=== PATIENT | female | born 1970 | race Caucasian/White ===

== ENCOUNTER → 2018-05-22 | Outpatient (CLI) | payer OTHER ==
[2018-05-22 19:33] LABS: Percent Saturation 13.3 % (15.0-50.0)
== END | disposition home or self-care (01) ==
LOC: LAB EV 17:15 → LAB SHORT 17:15
PROVIDERS: Physician Assistant Medical
DX: R79.89 Other specified abnormal findings of blood chemistry (principal)
CPT/HCPCS: 82728; 83540; 83550

== ENCOUNTER 2024-06-19 11:39 | Emergency (ER) | payer OTHER ==
[~2024-06-19] VITALS: Ht 165.1 cm; Wt 90.7 kg
[2024-06-19 11:49] VITALS: BP 177/99
[2024-06-19] MEDS ORDERED: MELO7.5 PO (11:54)
[2024-06-19] MEDS ORDERED: ALPRAZOLAM0.5 M1 PO (11:54)
== END 2024-06-19 12:33 | disposition home or self-care (01) ==
LOC: ER 11:39
DX: M54.6 Pain in thoracic spine (principal); V43.62XA Car passenger injured in collision with other type car in traffic accident, initial encounter; Z91.040 Latex allergy status; Z88.8 Allergy status to other drugs, medicaments and biological substances; Z79.899 Other long term (current) drug therapy
CPT/HCPCS: 72070; 99283-25